=== PATIENT | female | born 1995 | race Asian ===

== ENCOUNTER 2017-05-09 18:24 | Emergency (ER) | payer OTHER ==
[~2017-05-09] VITALS: Ht 162.6 cm; Wt 47.9 kg
[2017-05-09] MEDS ORDERED: FLONASE16 G1 BOTH NARES (19:47)
[2017-05-09] MEDS ORDERED: TESSALON200 MG PO (19:47)
[2017-05-09 20:36] VITALS: BP 134/77
== END 2017-05-09 20:37 | disposition home or self-care (01) ==
LOC: EME 18:24
DX: J00 Acute nasopharyngitis [common cold] (principal); F17.200 Nicotine dependence, unspecified, uncomplicated
CPT/HCPCS: 71046; 87502; 87651 90; 99281; 99283

== ENCOUNTER 2017-10-13 14:14 | Emergency (ER) | payer OTHER ==
[~2017-10-13] VITALS: Ht 162.6 cm; Wt 50.4 kg
[~2017-10-13 14:14] MED LIST: FLONASE16 G1 BOTH NARES; TESSALON200 MG PO
[2017-10-13] MEDS ORDERED: FIORICET 50-301 EAC1 PO (16:04)
[2017-10-13] MEDS ORDERED: ZOFRAN ODT8 MG PO (16:04)
[2017-10-13 16:38] VITALS: BP 115/79
== END 2017-10-13 16:42 | disposition home or self-care (01) ==
LOC: EME 14:14
DX: S06.0X0A Concussion without loss of consciousness, initial encounter (principal); V49.40XA Driver injured in collision with unspecified motor vehicles in traffic accident, initial encounter; F17.200 Nicotine dependence, unspecified, uncomplicated
CPT/HCPCS: 70450; 81003; 84702; 99281; 99284